=== PATIENT | female | born 1960 | race Caucasian/White ===

== ENCOUNTER 2023-09-01 22:27 | Emergency (ER) | payer MEDICAID, SELFPAY ==
[2023-09-01 22:29] VITALS: BP 110/70; PULSE 92; RESP 18; TEMP 36.2; O2SAT 99
[2023-09-01 22:33] VITALS: BMI 27.9
--- NOTE | 2023-09-01 22:40 | ED.VIS.FALL ---
HPI HPI - Fall History of Present Illness Chief Complaint: Fall Detail of Chief Complaint: Left knee injury when she fell coming out of her camper. Informant: patient Occured/Mechanism Occurred: Today and Hours Mechanism/Context: Yes slip Usually ambulates: Without assistance Pain/Injury Pain Location: lower extremity Quality of Pain: Sharp Current Severity: Moderate Maximum Severity: Moderate Associated Symptoms Associated Symptoms: Positive for Inability to ambulate; Negative for Parasthesias, Weakness, Loss of function, Loss of consciousness or Amnesia Narrative Narrative: Healthy 62-year-old female. Currently on no medications. Was getting out of her camper it was about 3 feet in the air. When she slipped and when she went down to the ground she injured her left knee. Denies hitting her head. Denies any headache or neck pain. No back pain. No loss conscious. Only area of significant pain is her left knee. She denies any chest or abdominal pain. She is on no blood thinners. Prior similar symptoms: No Recent Illness/Hospitalization: No PFSH PFSH Medical History Wears glasses Smokes no medical history Home Medications ?Medication ?Instructions ?Recorded ?Last Taken ?Type oxycodone-acetaminophen 5 mg-325 1 tab PO Q4H PRN pain 5 days #20 09/01/23 Unknown Rx mg tablet (Percocet) tabs Allergy/AdvReac Type Severity Reaction Status Date / Time acetaminophen (From Vicodin) AdvReac Mild Nausea/Vom/ Verified 09/01/23 22:49 Diarrhea hydrocodone (From Vicodin) AdvReac Mild Nausea/Vom/ Verified 09/01/23 22:49 Diarrhea Family History no significant family his Surgical History no surgical history ROS ROS ED ROS Narrative Denies recent illness. Review of Systems ROS Unobtainable: Denies due to encephalopathy Constitutional Constitutional ED: Denies chills or fever(s) Eyes Eyes: Denies blurry vision ENT ENT ED: Denies ear pain Cardiovascular Cardiovascular: Denies chest pain Respiratory/Chest Respiratory/Chest: Denies cough Gastrointestinal Gastrointestinal: Denies abdominal pain Genitourinary Genitourinary ED: Denies dysuria Musculoskeletal Musculoskeletal: Denies arthralgias Integumentary Denies abscess Neurologic Neurologic: Denies headache(s) Psychiatric Psychiatric: Denies anxiety Endocrine Endocrinology: Denies polydipsia Hematologic/Lymphatic Hematologic/Lymphatic: Denies easy bleeding Allergic/Immunologic Allergic/Immunologic ED: Denies mouth swelling, tongue swelling or urticaria EXAM Physical Exam Narrative Exam Narrative: 60-year-old female sitting upright in bed. Vital signs are stable afebrile. H EENT exam pupils round react to light. Dentition intact. No facial trauma no head trauma. No tenderness. No lacerations or abrasions. No hematomas. Neck C-spine and trachea nontender. Normal range of motion. Back and spine nontender. No signs of trauma. Lungs few scattered expiratory wheezes. She is a chronic smoker. Heart regular rate and rhythm rate about 90 no murmur. Chest wall and ribs nontender. Abdomen soft nontender. No peritoneal signs. No bruising. Pelvic girdle in tact. Hips are nontender. No shortening or rotation. Both upper extremities are nontender. 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 Normal flexion extension of her wrist, elbows and shoulders. No deformities. Right lower extremity is completely nontender with normal range of motion. The right hip, knee and ankle are nontender. Left lower extremity the hip and ankle and foot are nontender. She has a normal DP pulse. She can wiggle her toes. Has normal touch sensation. Left knee is swollen and tender. She has it flexed about 45 degrees and does not want to move it due to pain. There is no gross bony deformity. There is an effusion. It is tender. Skin is intact. Left hand ring finger has about a 2 cm laceration of the distal phalanx. No active bleeding. No bony deformity. Normal range of motion. Neurologically she is awake and alert. GCS of 15. No focal motor deficits. Const Vital Signs: 09/01/23 22:29 09/01/23 22:37 Temperature 97.2 F L Temperature Source Temporal Pulse Rate 92 Respiratory Rate 18 Respiratory Effort Normal Non-Labored Blood Pressure 110/70 Blood Pressure Mean 83 Pulse Ox 99 Oxygen Delivery Method Room Air Room Air Positive well nourished and well developed; Negative for cachectic, contractures or unkempt General Appearance ED: well developed and NAD; Negative for unkempt, cachectic or contractures Nutritional Appearance: Negative for cachectic HEENT Reports normocephalic atraumatic; Negative for trauma, contusion, hematoma or tenderness Eyes PERRL and EOMs intact bilaterally General Eye ED: Negative for pale conjunctiva or scleral icterus Neck full ROM, no lymphadenopathy and supple General: Negative for tenderness Chest Wall inspection of chest normal and palpation of chest normal Chest: Negative for other Resp normal respiratory effort, no retractions and No clear to auscultation bilaterally Resp Narrative: Few scattered wheezes. Chronic smoker. Auscultation: wheezes; Negative for rales, rhonchi, diminished lung sounds or other Cardio regular rate, regular rhythm, S1 normal heart sound, S2 normal heart sound and no murmurs Rate: Negative for bradycardia or tachycardic Rhythm: Negative for abnormal rhythm Bruits: Negative for other GI non-tender, non-distended and no masses Inspection: Negative for abdominal distention Palpation: soft; Negative for guarding or rebound tenderness present Back/Spine no CVA tenderness General Back: Negative for CVA tenderness Cervical Spine: Negative for cervical spine tenderness Thoracic Spine / Upper Back: Negative for ROM limited or pain with ROM Lumbar Spine / Lower Back: Negative for lumbar spinal tenderness Extremity Extremity Narrative: Left knee swollen. Flex at 45 degrees. Tender. Does not want a do range of motion due to pain. Left foot neurovascular intact and nontender. Left hip nontender. Neuro oriented x3, CN's II-XII intact bilaterally, moves all extremities, no focal motor deficits and no sensory deficits noted [place] Coma Scale: document GCS findings Spontaneous Obeys Commands Oriented 15 Sensorium / Orientation: alert, oriented to person, oriented to place and oriented to time; Negative for orientation impaired or confused Motor Exam: strength 5/5 throughout; Negative for general weakness or strength abnormal Psych mental status grossly normal and thought process normal Appearance: Negative for unkempt Attitude: No agitated Mood & Affect: Negative for depressed, anxious or tearful Skin Lesions: no lesions Rashes: no rashes MDM MDM MDM Narrative Medical decision making narrative: 62-year-old female who fell about 3 feet out of her camper when she slipped on the step injuring her left knee. X-ray being obtained. P.o. oxycodone for pain. Patient also has a about a 2 cm laceration palmar aspect left ring finger on the distal phalanx. She did not want me to suture that. So we dermabonded the laceration. There is no foreign body or infection. She has full range of motion of the hand. Repeat exam patient doing well at 11:30 PM. No new findings or injuries. I discussed the x-ray results of the patient's left knee and tibial plateau fracture laterally. She does not want to be admitted. We have no orthopedics on-call. She does not want to be transferred. Will obtain a CAT scan. She will be discharged home with Percocet for pain. She will be given crutches. Nonweightbearing. She will either follow-up with local orthopedics here or she lives near [place] with an orthopedic physician there. She is going to stay with a friend flavio so she can ice and elevate it. History & Record Review Discussion w/independent historian: Patient and Family Additional record(s) reviewed:: No prior records Radiography Diagnostic Testing: Left knee x-ray, 4 views, interpreted by myself shows left tibial plateau fracture laterally with some displacement and loss of height. I did discuss the x-ray with the patient. CT scan the left knee is pending. Procedures Lacerations Left ring finger laceration Dermabond repair.: Length: 1 in Depth: Sub Q Shape: Linear Laceration repair: Dermabond Comment: Clean. Patient did not want sutures. Dermabond. Dressed. Discharge Plan Triage Chief Complaint: Fall ED Provider: Martin Moore Dx/Rx/DC Orders Clinical Impression: Fall from height of less than 3 feet, Injury of knee, left, Traumatic effusion of knee joint, Closed fracture of tibial plateau Instructions: ED Fracture, Knee Prescriptions: New oxycodone-acetaminophen [Percocet] 5-325 mg tablet 1 tab PO Q4H PRN (Reason: pain) 5 Days Qty: 20 0RF Primary Care Provider: Care Physician,No Primary Referrals: Ayden Bateman DO [Med Staff - Active Staff] - As soon as possible Marco A Slaughter MD [Med Staff - Active Staff] - As soon as possible Activity Restrictions/Additional Instructions: No weightbearing on your left leg at all. Ice and elevate your left knee to decrease pain and swelling. Percocet for pain. No driving while on the pain medication. No alcohol. Watching on get constipated. Plenty of fluids and stool softener as needed. Fruits and vegetables and fiber to prevent constipation also. You have what is called a left knee tibial plateau fracture. This absolutely needs orthopedic evaluation. You need to have an orthopedic doctor look at your x-rays and your CAT scan and determine if they need to do surgery or not. You should see them this week and is soon as possible. I referred you to to orthopedic physicians here in [place] Dr. Ayden Bateman and Dr. Slaughter and you can try them or try an orthopedic physician of your choice at [facility] or the [facility]. Just tell them that you fell tonight and you have a tibial plateau fracture and they will try to get you in. Print Language: [place] Disposition Disposition: Home, Self Care
[2023-09-01] MEDS: oxyCODONE 5 MG Tablet PO ×2 (22:46→23:58)
--- NOTE | 2023-09-01 23:05 | RAD_ITS ---
EXAM: XR LEFT KNEE COMPLETE, 4 OR MORE VIEWS CLINICAL INDICATION: trauma TECHNIQUE: Four or more views of the left knee. COMPARISON: No relevant prior studies available. FINDINGS: BONES/JOINTS: Comminuted intra-articular fracture involving the lateral tibial plateau. Moderate hemarthrosis. Preservation of the joint space. No sclerotic or destructive changes observed. SOFT TISSUES: Unremarkable. No soft tissue swelling or gas. No radiopaque foreign body. RAD/Knee 3 Views IMPRESSION: Comminuted intra-articular fracture involving the lateral tibial plateau. Electronically Signed: Mauricio Gee MD at 23:39 EDT ,
--- NOTE | 2023-09-01 23:29 | CT_ITS ---
EXAM: CT LEFT LOWER EXTREMITY WITHOUT INTRAVENOUS CONTRAST CLINICAL INDICATION: left knee tibial platea fracture TECHNIQUE: Helically acquired images were obtained of the left lower extremity without intravenous contrast. 2-D reformats were performed by the technologist. This CT exam was performed using one or more of the following dose reduction techniques: automated exposure control, adjustment of the mA and/or kV according to patient size, and/or use of iterative reconstruction technique. RADIATION DOSE: CTDIvol = 15.35 mGy, DLP = 465.06 mGy-cm COMPARISON: No relevant prior studies available. FINDINGS: BONES/JOINTS: Comminuted intra-articular fracture of the tibial plateau both medially and laterally, with fracture lines extending distally into the tibial metaphysis. Large lipohemarthrosis. No fracture of the distal femur or the proximal fibula. Preservation of the joint space. No sclerotic or destructive changes. SOFT TISSUES: Soft tissue swelling. No radiopaque foreign body. CT/Extremity Lower without Contra IMPRESSION: 1. Comminuted intra-articular fracture of the tibial plateau both medially and laterally, with fracture lines extending distally into the tibial metaphysis. 2. Large lipohemarthrosis. Electronically Signed: Mauricio Gee MD at 0:24 EDT ,
[2023-09-02] MEDS: HYDROmorphone 1 MG/ML Syringe 2 MG IM (00:53)
[2023-09-02] MEDS: LORazepam 2 MG/ML Syringe 1 MG IM (00:53)
[2023-09-02] MEDS: Ondansetron ODT 4 MG Tablet PO (00:58)
[2023-09-02 01:45] VITALS: BP 146/89; PULSE 95; RESP 16; TEMP 36.6; O2SAT 99
== END 2023-09-02 01:50 | disposition home or self-care (01) ==
PROVIDERS: Emergency Provider Emergency Medicine; Visit Provider Emergency Medicine
DX: S82.142A Displaced bicondylar fracture of left tibia, initial encounter for closed fracture (principal); M25.462 Effusion, left knee; W19.XXXA Unspecified fall, initial encounter
CPT/HCPCS: 73562; 73700; 96372; 99285